=== PATIENT | male | born 1985 | race Caucasian/White ===

== ENCOUNTER → 2021-11-02 16:04 | Outpatient (CLI) | payer OTHER, SELFPAY ==
--- NOTE | ~2021-11-02 | XR_ITS ---
EXAMINATION: XR chest 2V Exam Date/Time: 11/02/2021 16:16 CDT HISTORY: Acute uveitis Comparison: 12/01/2014. RESULT: Lines, tubes, and devices: None. Lungs and pleura: Clear. Cardiomediastinal silhouette: Stable cardiomediastinal silhouette. Other: No acute osseous or upper abdominal finding. IMPRESSION: No acute cardiopulmonary process. Reviewed, dictated and finalized at location K.
== END ==
PROVIDERS: PCP Nurse Practitioner Family
DX: H20.00 Unspecified acute and subacute iridocyclitis (principal)
CPT/HCPCS: 71046